=== PATIENT | female | born 1980 | race Hispanic/Latino ===

== ENCOUNTER 2024-08-11 14:59 | Emergency (ER) | payer SELFPAY ==
[2024-08-11 15:04] VITALS: BP 116/81
[2024-08-11 15:25] LABS: Hematocrit 26.3 % (37.0-47.0); Hemoglobin 8.0 g/dL (12.0-16.0); Mean Corp Hgb Conc. 30.4 g/dL (33.0-37.0); Mean Corpuscular Volume 63.8 fL (81.0-99.0); Nucleated Red Blood Cells % 0 %; Platelet Count 338 10^3/uL (130-400); Red Cell Dist. Width 18.7 % (11.5-14.5)
[2024-08-11 15:41] LABS: HCG, Serum Qualitative Screen Negative
[2024-08-11 15:49] LABS: ALT (SGPT) 17 U/L (0-35); AST (SGOT) 17 U/L (14-36); Albumin 4.5 g/dl (3.5-5.0); Alkaline Phosphatase 51 U/L (38-126); Blood Urea Nitrogen 11 mg/dl (7-17); Calcium 9.5 mg/dl (8.4-10.2); Carbon Dioxide 22 mmol/L (22-30); Chloride 110 mmol/L (98-107); Glucose 105 mg/dl (70-99); Potassium 3.7 mmol/L (3.5-5.1); Sodium 139 mmol/L (135-145); Total Protein 7.6 g/dl (6.3-8.2); eGFR > 60.00
--- NOTE | 2024-08-11 16:45 | ED.GENMED ---
History of Present Illness
General
Chief Complaint: Dizziness
Source: patient
Exam Limitations: none
Time Seen by Provider: 08/11/24 16:39
History of Present Illness
History of Present Illness:
43yoF with a history of anemia and hyperlipidemia presenting for evaluation of dizziness. Patient is Bahamian-speaking and history is obtained with the assistance of a video interpreter and translator. Patient woke up yesterday morning with dizziness which she
describes as feeling like the room is spinning. Symptoms lasted for a few hours before resolving. She had a second episode of dizziness while at work today which was more mild. Symptoms seem to be worse if she leans over. Associated with nausea
and sweating in her hands. Patient denies any current dizziness and is now asymptomatic. She denies any ear pain, tinnitus, hearing loss, headache, visual changes, chest pain, shortness of breath. No prior history of similar symptoms and no
recent illnesses. Of note, patient has a diagnosis of anemia but stopped taking her iron supplementation over a year ago. She reports heavy menses but denies any hematochezia.
Phy Exam
General Physical Exam
General Presentation: well appearing and no apparent distress
General Skin: warm and dry
General Habitus: normal
General Mental: alert
ENT Exam
ENT Exam: TM's normal, pharynx normal and normocephalic
Eye Exam
Eye Exam: PERRL, EOMI and conjunctiva normal
Cardiovascular Exam
Cardiovascular Exam: regular rate/rhythm, no edema and no murmur
Pulmonary Exam
Pulmonary Exam: lungs clear, no respiratory distress, no rales, no crackles, no rhonchi and no wheezing
Neurological Exam
Neurological Exam: alert, CN II-XII intact, no motor deficits, speech normal, normal gait and other (Normal finger to nose and heel to gayle bilaterally. Ambulating with a steady gait.)
Raul Coma Scale
Eye Opening: Spontaneous
Verbal Response: Oriented
Motor Response: Obeys Commands
GCS Total Score: 15
Skin Exam
Skin Exam: normal color and warm/dry
Psychiatric Exam
Psychiatric Exam: normal mood/affect
Course
Orders/Labs/Results
Orders:
Orders
08/11/24 14:59
Electrocardiogram (*1) Urgent
Reason for Study: Vertigo / Dizzy
EKG- Treatment ONCE
08/11/24 15:16
Test Result ONCE
08/11/24 15:18
CBC/With Diff [Complete Blood Count/With Diff] Urgent
CMP [Comprehensive Metabolic Panel] Urgent
Ferritin Urgent
Comment: ADD ON
HCG, Serum Qualitative Screen Urgent
Iron Urgent
Comment: ADD ON
Total Iron Binding Urgent
Comment: ADD ON
08/11/24 16:39
Add On- LAB Urgent
Tests Added?: iron, ferritin, TIBC
08/11/24 17:10
CT Head W/o Iv Contrast Urgent
Comment:
Reason For Exam: dizziness
Abnormal Lab Results
08/11/24
15:18
RBC 4.12 L 10^6/uL
(4.20-5.40)
Hgb 8.0 L g/dL
(12.0-16.0)
Hct 26.3 L %
(37.0-47.0)
MCV 63.8 L fL
(81.0-99.0)
MCH 19.4 L pg
(27.0-31.0)
MCHC 30.4 L g/dL
(33.0-37.0)
RDW 18.7 H %
(11.5-14.5)
Absolute Monos (auto) 0.7 H 10^3/uL
(0.1-0.6)
Chloride 110 H mmol/L
(98-107)
Creatinine 0.5 L mg/dL
(0.6-1.0)
Glucose 105 H mg/dl
(70-99)
Iron 24 L ug/dl
(37-170)
% Saturation 5 L %
(20-50)
Ferritin 3.9 L ng/ml
(6.24-137)
08/11/24 15:18
08/11/24 15:18
Vital Signs
Initial and Last Documented VS:
Initial Vital Signs
Pulse Resp BP Pulse Ox
69 15 116/81 99
08/11/24 15:04 08/11/24 15:04 08/11/24 15:04 08/11/24 15:04
Last Documented Vital Signs
Temp Pulse Resp BP Pulse Ox
98.5 F 56 18 126/73 100
08/11/24 19:36 08/11/24 19:36 08/11/24 19:36 08/11/24 19:36 08/11/24 19:36
MDM/Problems Addressed
Differential Diagnosis Includes:
43yoF here with dizziness. Episode yesterday lasting a few hours and small episode today. Described as room spinning. Currently asymptomatic. Associated with nausea and sweats. No CP/SOB. VSS. She is well appearing in no distress. No nystagmus or
ataxia noted on exam. Differential diagnosis includes but is not limited to: BPPV, vestibular neuronitis, Meniere's, orthostasis, doubt central vertigo
Initial ED plan: Labs obtained in triage and hemoglobin is 8.0. No prior labs to compare to. No active bleeding. Patient stopped taking her iron pills last year and has a known hx of anemia. MCV is low suggesting iron deficiency. Remainder of labs
unremarkable. No ischemic changes on EKG. Will check CT head.
*Pulse Oximetry
SaO2: 99
Oxygen Mode of Delivery: Room air
Patient hypoxic: no (99%)
*EKG
Interpreted by ED Provider?: Yes
EKG Intrepretation Date: 08/11/24
Heart Rate: 86
Rate: normal
Rhythm: sinus
Arnold: normal axis
Interval: normal interval
QRS Pattern: normal QRS
Ischemia: no ischemia
*Critical Care Note
Total Time (30-74mins, 75-104mins- exclusive of procedures): Not Applicable
Update Note
Update Note:
CT head is negative for acute findings. She remains asymptomatic on reassessment and has not had any dizziness throughout ED stay. No indication for hospitalization. Prescription given for iron supplement. She does not currently have a PCP or
insurance and was given contact info for the free clinic. Patient instructed to have repeat blood work in 1-2 months to monitor her anemia. She was discharged in stable condition.
ED Attending Note
-
Portions of this chart may have been created with voice recognition software.� Occasional wrong word or��sound alike� substitutions may have occurred due to the inherent limitations of voice recognition software.
Discharge Plan
Departure
Patient Disposition: Home (Routine Discharge)
Date of Disposition: 08/11/24
Time of Disposition: 19:05
Patient with high blood pressure during this ER visit?: No
Discharge Problem:
Vertigo, Anemia
Instructions: Vertigo (a Type of Dizziness) (DC)
Prescriptions:
New
ferrous gluconate 324 mg (37.5 mg iron) tablet
324 mg PO DAILY Qty: 30 0RF
Referrals:
[facility] [Outside]
NONE,* [Family Provider, Internal Medicine]
Activity Restrictions/Additional Instructions:
Take iron as prescribed.
Please call tomorrow to schedule a follow-up with a family doctor. Return to ER with any new or worsening symptoms.
Interventions
Interventions:
*Risk Screen - Suicide Last Done: 08/11/24 15:04
*General Assessment Last Done: 08/11/24 15:04
*Neglect/Abuse Screening Last Done: 08/11/24 15:04
*ED- Fall Risk Assessment Last Done: 08/11/24 16:48
*ED COVID-19 Vaccine History Last Done: 08/11/24 19:36
*Nursing Disposition Last Done: 08/11/24 19:36
ED- Neurological Assessment Last Done: 08/11/24 16:57
ED- Cardiac Assessment Last Done: 08/11/24 19:36
ED Swallowing Screen Last Done: 08/11/24 16:57
Discharge Date and Time
Discharge Date/Time: 08/11/24 19:39
Print Language: ISRAELI
[2024-08-11 17:12] LABS: Iron 24 ug/dl (37-170)
[2024-08-11 17:21] LABS: Total Iron Binding Capacity 425 ug/dl (265-497)
[2024-08-11 17:58] VITALS: BP 121/71
[2024-08-11 18:29] VITALS: BP 115/71
[2024-08-11 19:16] LABS: Ferritin 3.9 ng/ml (6.24-137)
[2024-08-11 19:36] VITALS: BP 126/73
== END 2024-08-11 19:39 | disposition home or self-care (01) ==
LOC: EMR 14:59
PROVIDERS: Emergency Medicine; EMERGENCY PHYSICIAN Student in an Organized Health Care Education/Training Program
DX: R42 Dizziness and giddiness (principal); E78.00 Pure hypercholesterolemia, unspecified; N92.0 Excessive and frequent menstruation with regular cycle
CPT/HCPCS: 99284; 70450; 80053; 82728; 83540; 83550; 84703; 85025; 93005